=== PATIENT | male | born 1990 | race Caucasian/White ===

== ENCOUNTER 2019-01-06 23:32 | Emergency (ER) | payer OTHER ==
[~2019-01-06] VITALS: Ht 182.9 cm; Wt 81.7 kg
[2019-01-06 23:59] LABS: HEMATOCRIT 37.8 % (42.0-52.0); HEMOGLOBIN 13.1 gm/dL (14.0-18.0); MCH 34.3 pg (26.0-34.0); MCHC 34.7 g/dL (28.0-37.0); MCV 98.7 fL (80.0-100.0); PLATELET COUNT 321 thou/uL (150-400); RBC 3.83 mil/uL (4.50-6.00); RDW 12.8 % (10.5-14.5); WBC 6.9 thou/uL (4.0-11.0)
[2019-01-07 00:01] LABS: URINE BILIRUBIN NEGATIVE (Negative); URINE BLOOD 1+ (Negative); URINE CLARITY CLEAR; URINE COLOR YELLOW; URINE GLUCOSE-RANDOM* NEGATIVE (Negative); URINE KETONES NEGATIVE (Negative); URINE LEUKOCYTES-REFLEX NEGATIVE (Negative); URINE NITRITE-REFLEX NEGATIVE (Negative); URINE PROTEIN (DIPSTICK) NEGATIVE (Negative); URINE SPECIFIC GRAVITY >= 1.030 (1.005-1.035); URINE UROBILINOGEN 0.2 E.U./dl (0.2-1.0)
[2019-01-07 00:08] LABS: ANION GAP 9 mmol/L (7-16); BUN 12 mg/dL (7-18); CHLORIDE 106 mmol/L (98-107); CO2 30 mmol/L (21-32); CREATININE 1.4 mg/dL (0.7-1.3); GLUCOSE 153 mg/dL (74-106); POTASSIUM 3.7 mmol/L (3.5-5.1); SODIUM 145 mmol/L (136-145)
[2019-01-07 00:11] LABS: AMP/METHAMP POSITIVE (Negative); BARBITURATES Negative (Negative); BENZODIAZEPINES POSITIVE (Negative); COCAINE Negative (Negative); METHADONE Negative (Negative); OPIATES POSITIVE (Negative); PCP Negative (Negative)
[2019-01-07 00:17] LABS: ALBUMIN 3.7 g/dL (3.4-5.0); MAGNESIUM 2.1 mg/dL (1.8-2.4); SGOT 15 U/L (15-37); SGPT 38 U/L (30-65); TOTAL BILIRUBIN 0.4 mg/dL (<0.1-1.0); TOTAL PROTEIN 8.1 g/dL (6.4-8.2); TROPONIN-I <0.06 ng/mL (<0.06)
[2019-01-07 00:37] LABS: ABSOLUTE NEUTROPHILS 3.3 thou/uL (1.4-8.2)
[2019-01-07 00:38] LABS: ANISOCYTOSIS 1+; PLATELET ESTIMATE NORMAL; POIKILOCYTOSIS 1+; POLYCHROMASIA 1+
[2019-01-07 00:44] LABS: BACTERIA-REFLEX 1-9 Few /HPF (None Seen); CASTS None Seen /LPF (None Seen); CRYSTALS None Seen /LPF (None Seen); MUCUS 0-3 Light strn/LPF (None Seen); SQUAMOUS 0-3 Few /LPF (0-3); URINE RBC 3-10 Few /HPF (0-2); URINE WBC-REFLEX 0-5 Rare /HPF (0-5)
[2019-01-07] MEDS ORDERED: KEFLEX500 M1 PO (01:16)
[2019-01-07 05:30] VITALS: BP 103/76
--- NOTE | 2019-01-07 12:55 | EKG ---
[place] [address] [facility] [employer] [employer] [place] [address] ELECTROCARDIOGRAM REPORT Name: ALESSANDRAROBERT REARDON Room #: DEP [facility]ENTERKandisKandis#: [id number] ������������������ Admission: 01/06/19 ������������������ Attend Phys: Discharge: 01/07/19 ������������������ Date of : 89 Report #: [id number] ����������������������������������������������������������������� [id number] THIS REPORT FOR: //name// [facility] ED Test Date: 2019-01-06 Test Time: 23:39:32 Pat Name: ROBERT RIOS Department: Room: Gender: M Kitchen Helper: JAH : 1990 Requested By: Evan Palma Order Number: [id number] MD: Jonnie Gregory Measurements Intervals [place] Rate: 106 P: 42 RI: 132 QRS: 29 QRSD: 101 T: 28 QT: 340 QTc: 452 Interpretive Statements Sinus tachycardia Otherwise normal tracing No previous ECG available for comparison Electronically Signed On 01-07-2019 12:55:10 CDT by Jonnie Gregory [email or web address] ��������������������������������������������� <ELECTRONICALLY SIGNED> ���������������������������������������� By: Jonnie Gregory MD, [facility] ��������������������������������������������� 01/07/19 [id number] Jonnie Gregory MD, FACC /EPI
== END 2019-01-07 06:29 | disposition home or self-care (01) ==
LOC: ER 23:32
PROVIDERS: Emergency Medicine
DX: T40.1X1A Poisoning by heroin, accidental (unintentional), initial encounter (principal); L03.116 Cellulitis of left lower limb; L03.115 Cellulitis of right lower limb; F17.210 Nicotine dependence, cigarettes, uncomplicated; Y92.091 Bathroom in other non-institutional residence as the place of occurrence of the external cause